=== PATIENT | male | born 1965 | race African-American/Black ===

== ENCOUNTER 2024-09-06 00:57 | Inpatient (IN) | payer SELFPAY ==
[2024-09-06] VITALS (8 sets, daily range): BP systolic 111–123; BP diastolic 71–81; PULSE 85–145; RESP 18–32; TEMP 35.8–37.4; O2SAT 96–100
[~2024-09-06] VITALS: Ht 177.8 cm; Wt 82.2 kg
[2024-09-06] MEDS: DILTIAZEM HCL 5MG/ML 5ML VIAL IV ONE ×2 (01:32→01:54)
[2024-09-06] MEDS: MORPHINE SULFATE 4 MG/ML INJ (FOR IV/IM USE) IV ONE (01:33)
[2024-09-06 02:10] LABS: HEMATOCRIT. 33.8 % (42.0-52.0); HEMOGLOBIN. 11.1 g/dL (14.0-18.0); MEAN CORPUSCULAR HEMOGLOBIN 27.8 pg (28.0-32.0); MEAN CORPUSCULAR HGB CONC 32.7 g/dL (31.0-37.0); MEAN PLATELET VOLUME 7.3 fl (7.4-10.4); PLATELET 355 x1000/uL (130-400); RED BLOOD CELL COUNT 3.98 mill/uL (4.7-6.1); RED CELL DISTRIBUTION WIDTH 16.8 % (11.6-14.6); WHITE BLOOD COUNT 11.1 x1000/uL (4.5-11.0)
[2024-09-06 02:12] LABS: CHLORIDE 102 mEq/L (98-107); POTASSIUM 3.7 mEq/L (3.5-5.1); SODIUM 135 mEq/L (136-145)
[2024-09-06 02:13] LABS: CALCIUM 9.3 mg/dL (8.7-10.4); CARBON DIOXIDE 25 mEq/L (21-32)
[2024-09-06 02:16] LABS: INR 1.2; PARTIAL THROMBOPLASTIN TIME 39.9 sec (23.4-31.0)
[2024-09-06] MEDS: DILTIAZEM HCL 120MG CAPSULE ER 24HR PO ONE (02:17)
[2024-09-06 02:18] LABS: DIFFERENTIAL COMMENT 1; ETHANOL BLOOD < 10 mg/dL (<10); GLUCOSE 148 mg/dL (70-105); UREA NITROGEN BLOOD 19 mg/dL (9-23)
[2024-09-06 02:20] LABS: TROPONIN I HIGH SENSITIVITY 6 ng/L (3.0-53)
[2024-09-06 03:02] LABS: *AMPHETAMINES SCREEN URINE NEGATIVE (NEGATIVE); *BARBITURATES SCREEN URINE NEGATIVE (NEGATIVE); *BENZODIAZEPINES SCREEN URINE NEGATIVE (NEGATIVE)
[2024-09-06 03:03] LABS: *COCAINE SCREEN URINE NEGATIVE (NEGATIVE); CANNABINOID URINE SCREEN NEGATIVE (NEGATIVE); ECSTASY MDMA SCREEN URINE NEGATIVE (NEGATIVE); METHADONE URINE SCREEN NEGATIVE (NEGATIVE); OPIATES URINE SCREEN PRESUMPTIVE POSITIVE (NEGATIVE); PHENCYCLIDINE URINE SCREEN NEGATIVE (NEGATIVE)
[2024-09-06] MEDS: METOPROLOL TARTRATE 5MG/5ML VIAL IV ONE ×2 (03:20→03:57)
[2024-09-06] MEDS: ACETAMINOPHEN 325MG TABLET PO ONE (03:20)
[2024-09-06] MEDS ORDERED: METOPROLOL TARTRATE 5MG/5ML VIAL IV ONE (04:15)
[2024-09-06 06:34] LABS: PLATELET ESTIMATE NORMAL
[2024-09-06 06:35] LABS: ANISOCYTOSIS 1+
[2024-09-06] MEDS ORDERED: SULF-293 PO (08:19)
[2024-09-06] MEDS ORDERED: AMLO2.5T45 MT (08:19)
[2024-09-06] MEDS ORDERED: AMLO5TAB88 MT (08:19)
[2024-09-06] MEDS ORDERED: METF-1149 PO (08:19)
[2024-09-06] MEDS ORDERED: P EP MT (08:19)
[2024-09-06] MEDS ORDERED: P20 PO (08:19)
[2024-09-06] MEDS ORDERED: BLOO-340 HHN (08:19)
[2024-09-06] MEDS ORDERED: OXYC-662 GT (08:19)
[2024-09-06] MEDS ORDERED: FLEC50TA2 PO (08:19)
[2024-09-06] MEDS ORDERED: MORPHINE SULFATE 2 MG/ML INJ (NOT FOR IM USE) IV PRN (08:45)
[2024-09-06] MEDS ORDERED: CLONIDINE 0.1MG TABLET PO PRN (08:45)
[2024-09-06] MEDS ORDERED: ACETAMINOPHEN 325MG TABLET PO PRN ×2 (08:45)
[2024-09-06] MEDS ORDERED: GUAIFENESIN 200MG/10ML SUGAR FREE UDC PO PRN (08:45)
[2024-09-06] MEDS ORDERED: ZOLPIDEM TARTRATE 5MG TABLET PO PRN (08:45)
[2024-09-06] MEDS ORDERED: DEXTROSE 50% WATER 50ML SYRINGE IV PRN (08:45)
[2024-09-06] MEDS ORDERED: MAGNESIUM/ALUMINUM HYDROXIDE/SIMETHICONE 30ML UDC PO PRN (08:45)
[2024-09-06] MEDS ORDERED: ONDANSETRON HCL 4MG/2ML INJ IV PRN (08:45)
[2024-09-06] MEDS ORDERED: DIPHENHYDRAMINE 50MG/ML VIAL IV PRN (08:45)
[2024-09-06] MEDS: FLECAINIDE 50MG TABLET PO SCH (09:00)
[2024-09-06] MEDS: METOPROLOL TARTRATE 5MG/5ML VIAL IV SCH (09:09)
[2024-09-06] MEDS: DILTIAZEM HCL 60MG TABLET PO SCH (09:40)
[2024-09-06] MEDS: ENOXAPARIN 80MG/0.8ML SYR SUBCUT SCH (09:42)
[2024-09-06] MEDS: MORPHINE SULFATE 4 MG/ML INJ (FOR IV/IM USE) IV PRN (10:00)
[2024-09-06] MEDS: BLOOD SUGAR DIAGNOSTIC STRIP TEST SCH (12:10)
[2024-09-06] MEDS: PREDNISONE 20MG TABLET PO SCH (12:49)
[2024-09-06] MEDS ORDERED: NALOXONE HCL 0.4MG/ML VIAL IV PRN (13:30)
[2024-09-06] MEDS: DIGOXIN 500MCG/2ML AMP IV ONE ×3 (13:42→17:33)
[2024-09-06] MEDS ORDERED: DILTIAZEM HCL 60MG TABLET PO SCH (14:00)
[2024-09-06] MEDS: SODIUM CHLORIDE 0.9% 3ML FLUSH IVF SCH (14:00)
[2024-09-06] MEDS: HYDROCODONE/ACETAMINOPHEN 10/325MG TABLET PO PRN ×2 (14:08→21:08)
[2024-09-06] MEDS: INSULIN LISPRO 100 UNITS/ML SUBCUT SCH (14:12)
[2024-09-06] MEDS: DIGOXIN 125MCG TABLET PO SCH (18:00)
[2024-09-06] MEDS: TEMAZEPAM 15MG CAPSULE PO SCH (21:13)
[2024-09-07 04:00] VITALS: BP 122/79; PULSE 87; RESP 22; TEMP 36.1; O2SAT 98
[2024-09-07 12:00] VITALS: BP 141/86; PULSE 104; RESP 18; TEMP 36.6; O2SAT 95
[2024-09-07 13:41] VITALS: PULSE 104
[2024-09-07] MEDS ORDERED: TEMA15CA PO (17:32)
[2024-09-07] MEDS ORDERED: CARLA24 MT (17:32)
[2024-09-07] MEDS ORDERED: DIGO-34 PO (17:32)
[2024-09-07] MEDS ORDERED: HYDR-4009 PO (17:32)
== END 2024-09-07 19:05 | disposition left against medical advice (07) | DRG 201 ==
LOC: ER 00:57 → 8WST 03:07 → EDBEDREQ 03:14 → ENRESERV 03:50
PROVIDERS: ADMIT Internal Medicine; ATTEND Internal Medicine
DX: I48.0 Paroxysmal atrial fibrillation (principal); D89.84 IgG4-related disease; M54.9 Dorsalgia, unspecified; T38.0X5A Adverse effect of glucocorticoids and synthetic analogues, initial encounter; E11.65 Type 2 diabetes mellitus with hyperglycemia; G89.29 Other chronic pain; Z53.29 Procedure and treatment not carried out because of patient's decision for other reasons; N28.89 Other specified disorders of kidney and ureter; Y92.89 Other specified places as the place of occurrence of the external cause; Z79.52 Long term (current) use of systemic steroids; Z79.899 Other long term (current) drug therapy
CPT/HCPCS: 36415; 71045; 80048; 80305; 80320; 82962; 83036; 83880; 84484; 85025; 93005; 93306; 99291; A4606; J1160; J1650; J1815; J2270; J3490; J7512; G0480